=== PATIENT | female | born 1970 | race Caucasian/White ===

== ENCOUNTER 2020-04-01 09:54 | Outpatient (REF) | payer MEDICAID, SELFPAY ==
--- NOTE | ~2020-04-01 | US_ITS ---
EXAMINATION: US PELVIS CLINICAL INFORMATION: Pelvic pain COMPARISON: None TECHNIQUE: Transabdominal and transvaginal ultrasound of the pelvis is performed. FINDINGS: On transabdominal ultrasound, the uterus is anteverted measuring 10.5 cm in length, 5.3 cm in AP and 6.5 cm in transverse dimension. There are several hypoechoic lesions seen. 1. Lesion in the left upper anterior body of the uterus measures 0.9 x 0.9 x 1.0 cm. Previously it measured 0.9 x 0.9 x 0.8 cm. 2. Lesion in the right mid body of the uterus measures 0.7 x 0.5 x 0.6 cm. Previously it measured 0.6 x 0.7 x 0.7 cm. 3. Lesion in the left upper posterior body of the uterus measures 1.5 x 1.4 x 1.3 cm, new. There is an echogenic IUD in the endometrial canal in correct location. Small nabothian cysts are seen in the cervix. The right ovary measures 3.1 x 1.4 x 3.2 cm and volume 7.1 mL. There are small echogenic calcifications in the right ovary. Previously right ovary measured 3.8 x 1.3 x 1.3 cm and volume 3.3 mL. The left ovary measures 4.9 x 2.8 x 3.5 cm and volume 24.2 mL. Small anechoic cyst within measures 2.3 x 2.2 x 2.2 cm. There is a small calcification seen within. There is no free fluid in the cul-de-sac. US/US pelvic complete IMPRESSION: 1. Multiple small uterine fibroids as described above. There is a new fibroid measuring 1.5 cm. 2. There is an IUD within the endometrial canal in correct position. 3. There are small nabothian cysts in the cervix. 4. There is a simple cyst in the left ovary with bilateral ovarian small calcifications.
== END 2020-04-01 09:55 | disposition home or self-care (01) ==
LOC: HO.HMGCX 09:54
PROVIDERS: Visit Provider Advanced Practice Midwife
DX: N93.9 Abnormal uterine and vaginal bleeding, unspecified (principal)
CPT/HCPCS: 76830; 76856